=== PATIENT | female | born 1960 | race Caucasian/White ===

== ENCOUNTER 2019-12-06 22:05 | Observation (INO) | payer MEDICARE, MEDICAID ==
[~2019-12-06] VITALS: Ht 154.9 cm; Wt 106.5 kg
[~2019-12-06 22:05] MED LIST: ACID1TAB7 PO; AMIO200T PO; AMOX1TAB12 PO; ASPI-13 PO; ASPI-650 PO; CARV6.252 PO; CEFD300C37 PO; DIGO125T85 PO; DOXY100C15 PO; FURO-92 PO; FURO-93 PO; FURO40TA6 PO; LEVO112T4 PO; LEVO175T5 PO; LISI-170 PO; LISI5TAB7 PO; MAGN400T9 PO; METO25TA35 PO; POTA20PA31 PO; SIMV40TA PO; SPIR25TA PO; SPIR25TA5 PO; TRAM-47 PO
--- NOTE | 2019-12-06 22:19 | NUR ---
BIB EMS FROM [place] [place] [facility] 01/17 SUBSTERNAL CHEST PRESSURE, RADIATING TO L ARM. PAIN LASTED FOR APPROX 20 MIN, NOW 5/10 AND "FEELS MUCH BETTER". REPORTS ASSOCIATED NUMBNESS OVER L CHEST/LUQ. DENIES DIZZINESS/WEAKNESS/PRODUCTIVE COUGH/FEVER/N/V. HX OF AL AND PACEMAKER. 324MG ASA GIVEN EN ROUTE. BP/SPO2/ECG MONITORING IN PLACE. VENTRICULARLY PACED RHYTM ON MONITOR. FREQUENT PVCs. EKG COMPLETED UPON ARRIVAL. DAUGHTER AT BEDSIDE.
[2019-12-06] MEDS ORDERED: SODIUM CHLORIDE FLUSH 10ML SYR IVF ONE (22:30)
[2019-12-06 23:11] LABS: BASOPHILS # (AUTO) 0.05 x10^3/uL (0-0.1); BASOPHILS % (AUTO) 0 % (0-1); EOSINOPHILS # (AUTO) 0.28 x10^3/uL (0-0.4); EOSINOPHILS % (AUTO) 2 % (1-7); LYMPHOCYTES % (AUTO) 30 % (22-44); MD NO; MEAN CORPUSCULAR HEMOGLOBIN 30.3 pg (27.0-34.8); MEAN CORPUSCULAR HGB CONC 33.5 g/dL (32.4-35.8); MEAN CORPUSCULAR VOLUME 90.3 fL (80-100); MEAN PLATELET VOLUME 8.3 fL (7.4-10.4); MONOCYTES % (AUTO) 2 % (2-9); NEUTROPHILS # (AUTO) 7.51 x10^3/uL (1.8-6.8); NEUTROPHILS % (AUTO) 66 % (42-75); PLATELET COUNT 310 x10^3/uL (130-400); RED CELL DISTRIBUTION WIDTH 14.9 % (9.6-15.2)
[2019-12-06 23:25] LABS: ALBUMIN 2.9 g/dL (3.4-5.0); ANION GAP 4 mmol/L (5-15); CALCIUM 9.4 mg/dL (8.5-10.1); CHLORIDE 104 mmol/L (98-107)
[2019-12-06 23:30] LABS: CREATININE 0.94 mg/dL (0.55-1.02); TROPONIN I 0.027 ng/mL (0.000-0.045)
--- NOTE | 2019-12-06 23:43 | NUR ---
PT CONTINUES TO DENY RECURRENT S/S. FAMILY AT BEDSIDE. PACED RHYTHM ON MONITOR.
[2019-12-07] MEDS ORDERED: SODIUM CHLORIDE FLUSH 10ML SYR IVF PRN
[2019-12-07] MEDS ORDERED: SPIR25TA5 PO (00:07)
--- NOTE | 2019-12-07 00:17 | NUR ---
PT AMBULATED STEADILY TO BATHROOM WO RECURRING CP. DENIES SOB/DIZZINESS/WEAKNESS. VSS. ATTEMPTED PIV X1, UNSUCCESSFUL.
[2019-12-07] MEDS ORDERED: hydrALAzine 20 MG/ML, 1ML IVPush PRN (00:30)
[2019-12-07] MEDS ORDERED: ACETAMINOPHEN 325 MG TABLET PO PRN (00:30)
[2019-12-07] MEDS ORDERED: ONDANSETRON 2MG/ML, 2ML IVPush PRN (00:30)
[2019-12-07] MEDS ORDERED: morphine SULFATE 10 MG/ML, 1ML IV PRN (00:30)
--- NOTE | 2019-12-07 00:39 | NUR ---
REPORT TO SCOTT RODRIGUEZ ON TELE. PT PREPARED FOR TRANSPORT
[2019-12-07 00:58] LABS: ALANINE AMINOTRANSFERASE 62 U/L (12-78); ALBUMIN 2.9 g/dL (3.4-5.0)
[2019-12-07 01:01] LABS: BILIRUBIN, DIRECT < 0.1 mg/dL (0.1-0.2)
[2019-12-07 01:04] LABS: ALKALINE PHOSPHATASE 171 U/L (45-117); BILIRUBIN,INDIRECT 0.2 mg/dL (0.0-2.0); BILIRUBIN,TOTAL 0.3 mg/dL (0.2-1.0); TOTAL PROTEIN 8.6 g/dL (6.4-8.2)
[2019-12-07 01:29] VITALS: BP 117/76
[2019-12-07 01:29] LABS: FREE T4 (FREE THYROXINE) 1.31 ng/dL (0.76-1.46)
[2019-12-07] MEDS: ASPIRIN 325 MG TABLET EC PO SCH (05:48)
[2019-12-07 06:57] LABS: CHOL/HDL RATIO 3.9; CHOLESTEROL, TOTAL 208 mg/dL (140-239); HDL CHOL % 26 % (28-40); HDL CHOLESTEROL (DIRECT) 54 mg/dL (40-60); LDL CHOLESTEROL,CALCULATED 125 mg/dL (54-169); LDL/HDL RATIO 2.3 (0.5-3.0); TRIGLYCERIDES 143 mg/dL (50-200); TROPONIN I 0.033 ng/mL (0.000-0.045); VLDL CHOLESTEROL 29 mg/dL (0-25)
[2019-12-07 08:14] VITALS: BP 118/75
[2019-12-07] MEDS ORDERED: REGADENOSON 0.4 MG/5 ML SYRINGE ONE (08:17)
[2019-12-07] MEDS ORDERED: LEVOTHYROXINE 112 MCG TABLET PO SCH (09:00)
[2019-12-07 09:49] LABS: TROPONIN I 0.025 ng/mL (0.000-0.045)
[2019-12-07] MEDS: SPIRONOLACTONE 25 MG TABLET PO SCH (12:18)
[2019-12-07] MEDS: LISINOPRIL 5 MG TABLET PO SCH (12:18)
[2019-12-07] MEDS: CARVEDILOL 6.25 MG TABLET PO SCH ×2 (12:19→20:17)
[2019-12-07] MEDS: FUROSEMIDE 20 MG TABLET PO SCH (12:19)
[2019-12-07] MEDS ORDERED: LEVOTHYROXINE 112 MCG TABLET PO ONE (14:00)
[2019-12-07] MEDS ORDERED: LIOTHYRONINE 5 MCG TABLET PO ONE (14:00)
[2019-12-07 14:31] VITALS: BP 111/72
[2019-12-07 20:16] VITALS: BP 117/78
[2019-12-08 03:16] VITALS: BP 113/73
[2019-12-08] MEDS ORDERED: THYROID 30 MG TABLET PO SCH (06:00)
[2019-12-08] MEDS ORDERED: LIOTHYRONINE 5 MCG TABLET PO SCH (06:00)
[2019-12-08] MEDS ORDERED: LEVOTHYROXINE 112 MCG TABLET PO SCH (06:00)
[2019-12-08] MEDS: ASPIRIN 325 MG TABLET EC PO SCH (06:16)
[2019-12-08 06:42] VITALS: BP 111/76
[2019-12-08] MEDS: SPIRONOLACTONE 25 MG TABLET PO SCH (08:01)
[2019-12-08] MEDS: CARVEDILOL 6.25 MG TABLET PO SCH (08:01)
[2019-12-08] MEDS: FUROSEMIDE 20 MG TABLET PO SCH (08:02)
[2019-12-08] MEDS: LISINOPRIL 5 MG TABLET PO SCH (08:02)
[2019-12-08] MEDS ORDERED: LIOT5TAB10 PO (12:31)
== END 2019-12-08 14:45 | disposition home or self-care (01) ==
LOC: ED 23:31 → INTOOBSV 12-07 00:24 → EDIP 12-07 00:24 → 5SO 12-07 01:22
PROVIDERS: ADMIT Family Medicine; ATTEND Family Medicine
DX: R07.9 Chest pain, unspecified (principal); E03.9 Hypothyroidism, unspecified; E66.9 Obesity, unspecified; I11.0 Hypertensive heart disease with heart failure; I25.10 Atherosclerotic heart disease of native coronary artery without angina pectoris; I25.2 Old myocardial infarction; I50.32 Chronic diastolic (congestive) heart failure; I48.91 Unspecified atrial fibrillation; K76.0 Fatty (change of) liver, not elsewhere classified; I27.20 Pulmonary hypertension, unspecified; Z95.0 Presence of cardiac pacemaker; Z79.899 Other long term (current) drug therapy; Z79.82 Long term (current) use of aspirin
CPT/HCPCS: 36415; 71045; 78452; 80048; 80061; 80076; 80162; 82040; 83036; 83880; 84439; 84443; 84481; 84484; 85025; 93005; 93017; 99285; A9502; G0378; J2785